=== PATIENT | female | born 2000 | race Caucasian/White ===

== ENCOUNTER 2020-12-27 09:23 | Emergency (ER) | payer BC, OTHER ==
--- OUTSIDE RECORDS SUMMARY | 2020-12-27 09:25 | XMS REPORT | Continuity of Care Document ---
:2000 Author Organization [facility] t Address [address] [place] [address] Care Team Providers Name Role Phone Unavailable Unavailable Unavailable Problems This patient has no known problems. Allergies, Adverse Reactions, Alerts This patient has no known allergies or adverse reactions. Medications Ordered Filled Start Stop Current Ordering Indication Dosage Frequency Signature Comments Components Source Medication Medication Date Date Medication? Clinician (SIG) Name Name Sprintec 28 Sprintec 28 Yes Na Huizar [address] [facility] Xanax Xanax Yes Na Huizar [address] [facility] Quetiapine Quetiapine Yes Na Huizar [address] [facility] Propranolol Propranolol Yes Na Huizar [address] [facility] HCl HCl [facility] Mononessa Mononessa Yes Na Huizar TAKE [address] [facility] Procedures This patient has no known procedures. Encounters Start End Encounter Admission Attending Care Care Encounter Source Date/Time Date/Time Type Type Clinicians Facility Department ID 2020-11-03 2020-11-03 Outpatient [facility] [id number] [facility] 2020-11-03 2020-11-03 [facility] [id number] [facility] 2020-11-02 2020-11-02 [facility] [id number] [facility] 2020-10-12 2020-10-12 [facility] [id number] [facility] 2019-11-07 2019-11-07 [facility] [id number] [facility] 05:57[facility]00 05:57:00 t Ernul Ernul [facility] 2019-10-27 2019-10-27 [facility] [id number] [facility] 15:00:00 15:00:00 t Ernul [facility] [place] [facility] 2019-10-17 2019-10-17 [facility] [id number] [facility] 13:50:00 13:50:00 t Ernul [facility] [place] [facility] 2019-01-20 2019-01-20 [facility] [id number] [facility] 10:00:00 10:00:00 t Ernul [facility] [place] [facility] 2018-12-20 2018-12-20 [facility] [id number] [facility] 08:00:00 08:00:00 t Ernul [facility] [place] [facility] 2018-10-09 2018-10-09 [facility] [id number] [facility] 15:15:00 15:15:[address] Ernul [facility] [facility] [address] [facility] 2018-03-27 2018-03-27 [facility] [id number] [facility] 11:00:00 11:00:00 t Ernul [facility] [place] [facility] 2018-01-16 2018-01-16 [facility] [id number] [facility] 10:45:00 10:45:00 t Ernul [facility] [place] [facility] Results This patient has no known results.
--- NOTE | 2020-12-27 11:04 | RAD REPORT ---
EXAM DESCRIPTION: CT - Stone Protocol - 12/27/2020 10:48 am CLINICAL HISTORY: FLANK PAIN COMPARISON: Stone Protocol dated 11/21/2017 TECHNIQUE: Axial 5 mm thick images were obtained without oral or IV contrast. The [id number] span s the entirety of the system including uppermost abdomen and lung bases. All CT scans are performed using dose optimization technique as appropriate and may include automated exposure control or mA/KV adjustment according to patient size. FINDINGS: Moderate hydronephrosis of the right-sided collecting system is present secondary to a 7 x 3 mm distal right ureteral stone. The obstructing calculus is approximately 2 cm from the right UVJ. No other obstructing or nonobstructing calculus of either kidney. No left-sided hydronephrosis. No s uspicious renal masses. Isodense masses and pyelonephritis are not excluded on a stone protocol CT sc an. No significant adrenal finding. Urinary bladder is fully contracted. No bladder calculi seen. A f ew phleboliths are seen along the pelvic floor. Uterus and ovaries show no suspicious findings. Imaged portions of the liver, spleen and pancreas show no suspicious findings on non-contrast imaging . The liver does show fatty infiltration pattern. No gallbladder or biliary tree abnormality identifi ed. No suspicious bowel findings. No hernia, mass or bulky lymphadenopathy noted. No free air, free fluid or inflammatory stranding. No significant bony abnormality. IMPRESSION: Moderate right-sided hydronephrosis secondary to a 7 x 3 mm distal right ureteral stone approximately 2 cm from the UVJ. Isodense masses and pyelonephritis are not excluded on stone protocol technique.
[2020-12-27 11:31] LABS: Urine Bacteria <20 /HPF (<20); Urine Mucus LIGHT /HPF (NONE SEEN); Urine RBC 20-50 /HPF (NONE SEEN)
[2020-12-27 11:51] LABS: Absolute Lymphocytes (CBC) 1.9 K/uL (0.7-4.9); Basophils % 0.7 % (0-1.3); Hematocrit 41.3 % (36.0-45.0); Lymphocytes % 11.8 % (15.3-44.8); MPV 8.7 fL (7.6-11.3); RBC Red Blood Cell Count 4.83 M/uL (3.86-4.86)
[2020-12-27] MEDS ORDERED: ONDANSETRON 4 MG/2 ML VIAL ONE ×2 (11:55→13:16)
[2020-12-27] MEDS ORDERED: NA CHLORIDE 0.9% 1,000 ML ONE (11:55)
[2020-12-27] MEDS ORDERED: TAMSULOSIN 0.4 MG SR CAP ONE (11:55)
[2020-12-27] MEDS ORDERED: MORPHINE 4 MG/ML SYR ONE (11:55)
[2020-12-27 11:56] LABS: Potassium 4.1 mmol/L (3.5-5.1)
[2020-12-27 11:57] LABS: Albumin 4.1 g/dL (3.4-5.0); Bilirubin Direct 0.1 mg/dL (0-0.2); Bilirubin Total 0.4 mg/dL (0.2-1.0); Protein, Total 8.2 g/dL (6.4-8.2)
--- NOTE | 2020-12-27 12:14 | EDPHYS ---
Physician Documentation [facility] Name: Dustin Edwards Age: 20 yrs Sex: Female : 2000 Arrival Date: 12/27/2020 Time: 09:26 Bed 20 Private MD: ED Physician Natalia Duran HPI: 12/27 11:38 This 20 yrs old Female presents to ER via Ambulatory with complaints of ma2 Possible Kidney Stone. 11:38 The patient complains of pain in the right mid back. Onset: The symptoms/episode ma2 began/occurred gradually, 1 day(s) ago. Associated signs and symptoms: Pertinent negatives: dysuria, urinary frequency, headache, hematuria, nausea. Severity of pain: At its worst the pain was moderate in the emergency department the pain has resolved. The patient has experienced a previous episode. 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 - Social history:: Smoking status: Reported history of juuling and/or vaping. Patient/guardian denies using alcohol, street drugs, The patient lives with family. - Family history:: not pertinent. ROS: 11:38 Constitutional: Negative for fever, chills, and weight loss. ma2 11:38 All other systems are negative. Exam: 11:38 Constitutional: This is a well developed, well nourished patient who is awake, alert, ma2 and in no acute distress. Chest/axilla: Normal chest wall appearance and motion. Nontender with no deformity. No lesions are appreciated. Cardiovascular: Regular rate and rhythm with a normal S1 and S2. No gallops, murmurs, or rubs. Normal PMI, no JVD. No pulse deficits. Respiratory: Lungs have equal breath sounds bilaterally, clear to auscultation and percussion. No rales, rhonchi or wheezes noted. No increased work of breathing, no retractions or nasal flaring. Abdomen/GI: Soft, non-tender, with normal bowel sounds. No distension or tympany. No guarding or rebound. No evidence of tenderness throughout. Skin: Warm, dry with normal turgor. Normal color with no rashes, no lesions, and no evidence of cellulitis. MS/ Extremity: Pulses equal, no cyanosis. Neurovascular intact. Full, normal range of motion. Neuro: Awake and alert, GCS 15, oriented to person, place, time, and situation. Cranial nerves II-XII grossly intact. Motor strength 5/5 in all extremities. Sensory grossly intact. Cerebellar exam normal. Normal gait. Vital Signs: 10:06 BP 151 / 86; Pulse 87; Resp 16; Temp 98.4; Pulse Ox 100% on R/A; Weight 142.88 kg; iw Height 5 ft. 4 in. (162.56 cm); Pain 9/10; 12:00 BP 147 / 75; Pulse 79; Resp 17; Pulse Ox 99% ; bp 14:00 BP 127 / 72; Pulse 75; Resp 17; Pulse Ox 100% ; bp 10:06 Body Mass Index 54.07 (142.88 kg, 162.56 cm) MDM: 11:13 Patient medically screened. ma2 11:38 Differential diagnosis: nephrolithiasis, pyelonephritis, UTI, pancreatitis. ma2 12:12 Data reviewed: vital signs, nurses notes. Counseling: I had a detailed discussion with ma2 the patient and/or guardian regarding: the historical points, exam findings, and any diagnostic results supporting the discharge/admit diagnosis, the presence of at least one elevated blood pressure reading (>120/80) during this emergency department visit, the need for outpatient follow up. Response to treatment: the patient's symptoms have markedly improved after treatment. ED course: wbc is elevated likley d/t pain and stress, as no uti on ua, or ct , o other component to qualify for sirs, i explained need to f/uy with urology in 2 days and return to er precaution given. 12/27 10:32 Order name: Urine --Ancillary (enter results) iw 12/27 10:32 Order name: Urine Microscopic Only iw 12/27 10:33 Order name: Urine Microscopic Only; Complete Time: 12:12 EDMS 12/27 10:42 Order name: Urine Dipstick--Ancillary (enter results) bd 12/27 11:20 Order name: Basic Metabolic Panel; Complete Time: 12:12 nm2 12/27 11:20 Order name: CBC with Diff; Complete Time: 12:12 nm2 12/27 10:33 Order name: CT Stone Protocol; Complete Time: 11:19 iw 12/27 11:20 Order name: Hepatic Function; Complete Time: 12:12 nm2 12/27 11:20 Order name: Lipase; Complete Time: 12:12 nm2 12/27 11:33 Order name: Urine Culture [facility] 12/27 11:20 Order name: IV Saline Lock; Complete Time: 12:01 nm2 12/27 11:20 Order name: Labs collected and sent; Complete Time: 12:44 ma2 Administered Medications: 11:45 Drug: NS 0.9% 1000 ml Route: IV; Rate: 1 bolus; Site: right antecubital; bp 11:45 Drug: Zofran (Ondansetron) 4 mg Route: IVP; Site: right antecubital; bp 12:44 Follow up: Response: No adverse reaction bp 11:45 Drug: Flomax 0.4 mg Route: PO; bp 12:44 Follow up: Response: No adverse reaction bp 11:45 Drug: morphine 4 mg Route: IVP; Site: right antecubital; bp 12:44 Follow up: Response: Pain is decreased bp 13:00 Drug: Dilaudid (HYDROmorphone) 1 mg Route: IVP; Site: right antecubital; bp 13:00 Drug: Zofran (Ondansetron) 4 mg Route: IVP; Site: right antecubital; bp Disposition: 12/27/20 12:14 Discharged to Home. Impression: Calculus of urinary tract in diseases classified elsewhere - right ureter. - Condition is Stable. - Discharge Instructions: Kidney Stones. - Prescriptions for Flomax 0.4 mg Oral Capsule, Sust. Release 24 hr - take 1 capsule by ORAL route once daily 1/2 hour following the same meal each day; 30 capsule. Diclofenac Sodium 75 mg Oral Tablet Sustained Release - take 1 tablet by ORAL route 2 times per day; 30 tablet. Zofran 4 mg Oral Tablet - take 1 tablet by ORAL route every 12 hours As needed; 20 tablet. - Medication Reconciliation Form, Thank You Letter, Antibiotic Education, Prescription Opioid Use form. - Follow up: Dejon Farooq; When: Tomorrow; Reason: If symptoms return, Continuance of care. Signatures: Dispatcher [employer] Raquel Talley RN RN Cristhian Magdaleno RN RN bp Alzahri, Mohammad, MD MD ma2 Corrections: (The following items were deleted from the chart) 14:11 12:14 12/27/2020 12:14 Discharged to Home. Impression: Calculus of urinary tract in bp diseases classified elsewhere - right ureter. Condition is Stable. Prescriptions for Flomax 0.4 mg Oral Capsule, Sust. Release 24 hr - take 1 capsule by ORAL route once daily 1/2 hour following the same meal each day; 30 capsule, Diclofenac Sodium 75 mg Oral Tablet Sustained Release - take 1 tablet by ORAL route 2 times per day; 30 tablet, Zofran 4 mg Oral Tablet - take 1 tablet by ORAL route every 12 hours As needed; 20 tablet. and Forms are Medication Reconciliation Form, Thank You Letter, Antibiotic Education, Prescription Opioid Use. Follow up: Dejon Farooq; When: Tomorrow; Reason: If symptoms return, Continuance of care. ma2
--- NOTE | 2020-12-27 12:14 | ER ---
Nurse's Notes [facility] Name: Dustin Edwards Age: 20 yrs Sex: Female : 2000 Arrival Date: 12/27/2020 Time: 09:26 Bed 20 Private MD: Diagnosis: Calculus of urinary tract in diseases classified elsewhere-right ureter Presentation: 12/27 10:04 Chief complaint: Parent and/or Guardian states: pain in right low back radiating to abd iw , feels like a kidney stone, started at 2 am, +nausea. Coronavirus screen: At this time, the client does not indicate any symptoms associated with coronavirus-19. Ebola Screen: Patient negative for fever greater than or equal to 101.5 degrees Fahrenheit, and additional compatible Ebola Virus Disease symptoms Patient denies exposure to infectious person. Patient denies travel to an Ebola-affected area in the 21 days before illness onset. No symptoms or risks identified at this time. Initial Sepsis Screen: Does the patient meet any 2 criteria? No. Patient's initial sepsis screen is negative. Does the patient have a suspected source of infection? No. Patient's initial sepsis screen is negative. Risk Assessment: Do you want to hurt yourself or someone else? Patient reports no desire to harm self or others. Onset of symptoms was December 27, 2020. 10:04 Method Of Arrival: Ambulatory iw 10:04 Acuity: BRANDI 3 iw Triage Assessment: 10:10 General: Appears distressed, uncomfortable, obese, Behavior is cooperative, appropriate bp for age, anxious. Pain: Complains of pain in right mid back. EENT: No deficits noted. Neuro: No deficits noted. Cardiovascular: No deficits noted. Respiratory: No deficits noted. GI: Reports Pain is 5 out of 10 on a pain scale. : No signs and/or symptoms were reported regarding the genitourinary system. Derm: No deficits noted. Musculoskeletal: No deficits noted. 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 - Social history:: Smoking status: Reported history of juuling and/or vaping. Patient/guardian denies using alcohol, street drugs, The patient lives with family. - Family history:: not pertinent. Screenin:00 Abuse screen: Denies threats or abuse. Denies injuries from another. Nutritional bp screening: No deficits noted. Tuberculosis screening: No symptoms or risk factors identified. Fall Risk None identified. Assessment: 10:15 General: SEE TRIAGE NOTE. bp 12:00 Reassessment: No changes from previously documented assessment. Patient and/or family bp updated on plan of care and expected duration. Pain level reassessed. Patient is alert, oriented x 3, equal unlabored respirations, skin warm/dry/pink. IVF INFUSING. 14:00 Reassessment: PT D/C HOME AMBULATORY WITH FAMILY, DX WITH RENAL CALCULUS. bp Vital Signs: 10:06 BP 151 / 86; Pulse 87; Resp 16; Temp 98.4; Pulse Ox 100% on R/A; Weight 142.88 kg; iw Height 5 ft. 4 in. (162.56 cm); Pain 9/10; 12:00 BP 147 / 75; Pulse 79; Resp 17; Pulse Ox 99% ; bp 14:00 BP 127 / 72; Pulse 75; Resp 17; Pulse Ox 100% ; bp 10:06 Body Mass Index 54.07 (142.88 kg, 162.56 cm) iw ED Course: 09:26 Patient arrived in ED. as 10:05 Triage completed. iw 10:06 Arm band placed on. iw 10:48 CT Stone Protocol In Process Unspecified. EDMS 11:13 Natalia Duran MD is Attending Physician. ma2 11:13 Cristhian Magdaleno, KYRIE is Primary Nurse. bp 11:23 Urine Microscopic Only Sent. iw 11:45 Inserted saline lock: 20 gauge in right antecubital area, using aseptic technique. bp Blood collected. 12:00 Patient has correct armband on for positive identification. Bed in low position. Call bp light in reach. Side rails up X2. 12:13 Dejon Farooq MD is Referral Physician. ma2 Administered Medications: 11:45 Drug: NS 0.9% 1000 ml Route: IV; Rate: 1 bolus; Site: right antecubital; bp 11:45 Drug: Zofran (Ondansetron) 4 mg Route: IVP; Site: right antecubital; bp 12:44 Follow up: Response: No adverse reaction bp 11:45 Drug: Flomax 0.4 mg Route: PO; bp 12:44 Follow up: Response: No adverse reaction bp 11:45 Drug: morphine 4 mg Route: IVP; Site: right antecubital; bp 12:44 Follow up: Response: Pain is decreased bp 13:00 Drug: Dilaudid (HYDROmorphone) 1 mg Route: IVP; Site: right antecubital; bp 13:00 Drug: Zofran (Ondansetron) 4 mg Route: IVP; Site: right antecubital; bp Outcome: 12:14 Discharge ordered by MD. walters 14:11 Patient left the ED. bp Signatures: Dispatcher [employer] Maya Norris Irene, RN RN iw Cristhian Magdaleno RN RN bp Natalia Duran MD MD ma2 Corrections: (The following items were deleted from the chart) 14:10 14:05 General: SEE TRIAGE NOTE. bp bp
[2020-12-27] MEDS ORDERED: HYDROMORPHONE HCL 1 MG/ML INJ ONE (13:16)
[2020-12-27 14:42] VITALS: TEMP 98.4
[2020-12-27 14:45] VITALS: BP 127/72; O2SAT 100
[2020-12-27 15:55] LABS: Urine Blood 1+ (Negative); Urine Glucose NEGATIVE (Negative); Urine Protein NEGATIVE (NEG); Urine Specific Gravity 1.025 (1.005-1.030)
[2020-12-27 15:56] LABS: Urine Specific Gravity/Preg 1.025 (1.005-1.030)
== END 2020-12-27 14:11 | disposition home or self-care (01) ==
LOC: ER 09:23
DX: N20.1 Calculus of ureter (principal); F20.9 Schizophrenia, unspecified
CPT/HCPCS: 87088; 85025; 87086; 80048; 36415; 81025; 80076; 83690; 76377; 74176; J1170; J7030; J2405 ×2; 81003; 81015; 96374; 96375; 99284

== ENCOUNTER 2024-05-12 14:00 | Emergency (ER) | payer BC, OTHER ==
--- OUTSIDE RECORDS SUMMARY | 2024-05-12 14:03 | XMS REPORT | Continuity of Care Document ---
Author Name Unknown Address [address] [facility] [place] [address] [facility] Address [address] [facility] [address] [place] [address] Care Team Providers Care Crnp Name Role Phone Beatrice Huizar Attending Clinician Unavailable Payers Payer Name Policy Type Policy Number Effective Date Expirati on Date Source Claudia [facility] 6 [id number] Commo n [facility] [id number] 2019 00:00:00 [facility] [id number] 2019 00:00:00 [facility] Problems Condition Name Condition Details Condition Category Status Onset Date Resolution Date Last Treatment Date Treating Clinician Comments Source [id number] Allergic rhinitis due to animal hair and dander Problem [facility] [id number] Gastroesop hageal reflux disease, unspecifie d whether esophagiti s present Problem [facility] [id number] Current smoker Problem [facility] Child health medical examinatio n Encntr for routine child health exam w/o abnormal findings Problem [facility] Morbid obesity Morbid obesity with BMI of 40.0-44.9, adult Problem [facility] [id number] Menorrhalg ia Problem [facility] [id number] Other specified bacterial agents as the cause of diseases classified elsewhere Problem [facility] Bipolar disorder Bipolar disorder Problem [facility] Schizophre mohamud Schizophre mohamud Problem [facility] [id number] Metrorrhag ia Problem [facility] Mixed anxiety and depressive disorder Depression with anxiety Problem [facility] [id number] Acute sinusitis, unspecifie d Problem [facility] Essential hypertensi on Essential hypertensi on Problem [facility] Vitamin D deficiency Vitamin D deficiency Problem [facility] [id number] Acute tonsilliti s due to other specified organisms Problem [facility] Social History Social Habit Start Date Stop Date Quantity Comments Source History of Tobacco Use Current Smoker [facility] Sex Assigned At [facility] Smoking Status Start Date Stop Date Source Current Smoker 2022-09-27 00:00:00 [facility] Never Smoker [facility] Medications Ordered Medication Name Filled Medication Name Start Date Stop Date Current Medication? Ordering Clinician Indication Dosage Frequency Signature (SIG) Comments Components Source Xanax 0.5 MG Xanax 0.5 MG 2021-10 00:00: 00 No 1{table t} Xanax 0.5 MG Xanax 0.5 MG Xanax 0.5 MG 2021-06-12 00:00: 00 No 1{table t} Xanax 0.5 MG Xanax 0.5 MG Xanax 0.5 MG 2021-0 06-12 00:00: 00 No 1{table t} Xanax 0.5 MG Flonase 50 MCG/ACT Flonase 50 MCG/ACT 2021-0 03-22 00:00: 00 No 2{spray _in_eac h_nostr il} QD Flonase 50 MCG/ACT Xanax 0.5 MG Xanax 0.5 MG 2021-03-22 00:00: 00 No 1{table t} Xanax 0.5 MG Cetirizine HCl 10 MG Cetirizine HCl 10 MG 2021-0 03-22 00:00: 00 No 1{table t} Cetirizine HCl 10 MG Cetirizine HCl 10 MG Cetirizine HCl 10 MG 2021-0 6- 00:00: 00 No 1{table t} Cetirizine HCl 10 MG Cetirizine HCl 10 MG Cetirizine HCl 10 MG 2021-0 6- 00:00: 00 No 1{table t} Cetirizine HCl 10 MG Flonase 50 MCG/ACT Flonase 50 MCG/ACT 2-0 6- 00:00: 00 No 2{spray _in_eac h_nostr il} QD Flonase 50 MCG/ACT Cetirizine HCl 10 MG Cetirizine HCl 10 MG 2021-0 - 00:00: 00 No 1{table t} Cetirizine HCl 10 MG Flonase 50 MCG/ACT Flonase 50 MCG/ACT 2-0 6- 00:00: 00 No 2{spray _in_eac h_nostr il} QD Flonase 50 MCG/ACT Xanax 0.5 MG Xanax 0.5 MG 2021-0 4-06 00:00: 00 No 1{table t} Xanax 0.5 MG Xanax 0.5 MG Xanax 0.5 MG 2021-0 1-04 00:00: 00 No 1{table t} Xanax 0.5 MG Lo Loestrin Fe 1 MG-10 MCG / 10 MCG Lo Loestrin Fe 1 MG-10 MCG / 10 MCG 2020-1 0-04 00:00: 00 No 1{table t} QD Lo Loestrin Fe 1 MG-10 MCG / 10 MCG Famotidine 20 MG Famotidine 20 MG 2020-0 2-03 00:00: 00 No 1{table t} BID Famotidine 20 MG Sprintec 28 Sprintec 28 Yes Na Huizar 1 tablet [facility] Xanax Xanax Yes Na Huizar 1 tablet C [facility] Quetiapine Fumarate Quetiapine Fumarate Yes Na Huizar 1 tablet [facility] Propranolol HCl Propranolol HCl Yes Na Huizar 1 tablet [facility] Mononessa Mononessa Yes Na Huizar TAKE 1 TABLET BY MOUTH EVERY DAY [facility] Propranolol HCl 40 MG Propranolol HCl 40 MG No 1{table t} BID Propranolo l HCl 40 MG Lo Loestrin Fe 1 MG-10 MCG / 10 MCG Lo Loestrin Fe 1 MG-10 MCG / 10 MCG No Lo Loestrin Fe 1 MG-10 MCG / 10 MCG Lo Loestrin Fe 1 MG-10 MCG / 10 MCG Lo Loestrin Fe 1 MG-10 MCG / 10 MCG No Lo Loestrin Fe 1 MG-10 MCG / 10 MCG Nicotine 21 MG/24HR Nicotine 21 MG/24HR No 1{patch _to_ski n} QD Nicotine 21 MG/24HR Lo Loestrin Fe 1 MG-10 MCG / 10 MCG Lo Loestrin Fe 1 MG-10 MCG / 10 MCG No Lo Loestrin Fe 1 MG-10 MCG / 10 MCG QUEtiapine Fumarate 300 MG QUEtiapine Fumarate 300 MG No 1{table t} QUEtiapine Fumarate 300 MG Sprintec 28 35-0.25 MCG-MG Sprintec 28 35-0.25 MCG-MG No 1{table t} QD Sprintec 28 35-0.25 MCG-MG Xanax 0.5 MG Xanax 0.5 MG No 1{table t} Xanax 0.5 MG Propranolol HCl 40 MG Propranolol HCl 40 MG No 1{table t} BID Propranolo l HCl 40 MG Vital Signs Vital Name Observation Time Observation Value Comments S chad height 2022-09-04 17:00:00 64 [in_i] Commo n [facility] weight 2022-09-04 17:00:00 270 [lb_av] Comm on [facility] bmi 2022-09-04 17:00:00 46.34 kg/m2 Comm on [facility] height 2022-06-12 08:40:00 64 [in_i] Commo n [facility] weight 2022-06-12 08:40:00 269.8 [lb_av] Co mmon [facility] temperature 2022-06-12 08:40:00 98.1 [degF] Com mon [facility] bmi 2022-06-12 08:40:00 46.31 kg/m2 Comm on [facility] oximetry 2022-06-12 08:40:00 98 % Commo n [facility] respiratory rate 2022-06-12 08:40:00 16 /min [facility] blood pressure systolic 2022-06-12 08:40:00 122 mm[Hg] Common [facility] blood pressure diastolic 2022-06-12 08:40:00 68 mm[Hg] [facility] height 2022-03-22 09:40:00 64 [in_i] Commo n [facility] weight 2022-03-22 09:40:00 282 [lb_av] Comm on [facility] temperature 2022-03-22 09:40:00 98.3 [degF] Com [facility] bmi 2022-03-22 09:40:00 48.4 kg/m2 Commo n [facility] oximetry 2022-03-22 09:40:00 97 % Commo n [facility] blood pressure systolic 2022-03-22 09:40:00 130 mm[Hg] [facility] blood pressure diastolic 2022-03-22 09:40:00 82 mm[Hg] Common [facility] height 2021-10-04 13:00:00 64.00 [in_i] Com [facility] weight 2021-10-04 13:00:00 282 [lb_av] Comm on [facility] temperature 2021-10-04 13:00:00 98.3 [degF] Com [facility] bmi 2021-10-04 13:00:00 48.4 kg/m2 Commo n [facility] oximetry 2021-10-04 13:00:00 97 % Commo n [facility] respiratory rate 2021-10-04 13:00:00 20 /min [facility] blood pressure systolic 2021-10-04 13:00:00 130 mm[Hg] [facility] blood pressure diastolic 2021-10-04 13:00:00 82 mm[Hg] [facility] height 2021-07-04 13:20:00 64.00 [in_i] Com [facility] weight 2021-07-04 13:20:00 286.4 [lb_av] Co mmon [facility] temperature 2021-07-04 13:20:00 97.3 [degF] Com [facility] bmi 2021-07-04 13:20:00 49.16 kg/m2 Comm on [facility] oximetry 2021-07-04 13:20:00 98 % Commo n [facility] respiratory rate 2021-07-04 13:20:00 16 /min [facility] blood pressure systolic 2021-07-04 13:20:00 122 mm[Hg] [facility] blood pressure diastolic 2021-07-04 13:20:00 78 mm[Hg] [facility] Encounters Start Date/Time End Date/Time Encounter Type Admission Type Attending [facility] Care Facility Care Department Encounter ID Source 2022-08-31 15:18:00 Outpatient Gaye Na STLMLC STLMLC [id number] [facility] 2022-08-30 10:59:00 Outpatient Gaye Na STLMLC STLMLC [id number] [facility] 2022-06-08 11:29:00 Outpatient Gaye, Na STLMLC STLMLC [id number] [facility] 2022-05-05 10:48:00 Outpatient Beatrice Huizar STLMLC STLMLC [id number] [facility] 2021-11-30 10:38:00 Outpatient Gaye Na STLMLC STLMLC [id number] [facility] 2021-11-16 17:20:00 Outpatient Beatrice Huizar STLMLC STLMLC [id number] [facility] 2021-11-09 09:30:01 Outpatient Beatrice Huizar STLMLC STLMLC [id number] [facility] 2021-11-02 14:13:00 Outpatient Beatrice Huizar STLMLC STLMLC [id number] [facility] 2021-10-26 14:30:42 Outpatient Beatrice Huizar STLMLC STLMLC [id number] [facility] 2021-10-26 13:56:00 Outpatient Beatrice Huizar STKRISSYLC STLMLC [id number] [facility] 2021-10-26 13:00:32 Outpatient Beatrice Huizar STKRISSYLC STLMLC [id number] [facility] 2021-10-26 12:20:05 Outpatient Beatrice Huizar STKRISSYLC STLMLC [id number] [facility] 2021-10-26 11:17:28 Outpatient Beatrice Huizar STLMLC STLMLC [id number] [facility] 2024-01-14 13:18:45 2024-01-14 13:18:45 Outpatient SFA SFA [id number] Jalen Osorio 2023-12-13 10:58:08 2023-12-13 10:58:08 Outpatient SFA SFA [id number] Jalen Josue Devon 2023-10-27 13:58:47 2023-10-27 13:58:47 Outpatient SFA SFA [id number] Jalen Josue Devon 2023-08-24 16:01:11 2023-08-24 16:01:11 Outpatient SFA SFA [id number] Jalen Josue Devon 2023-08-22 13:53:38 2023-08-22 13:53:38 Outpatient SFA SFA [id number] Jalen Josue Devon 2023-07-31 17:23:49 2023-07-31 17:23:49 Outpatient SFA SFA [id number] Jalen Osorio 2022-09-04 00:00:00 2022-09-04 00:00:00 OFFICE VISIT EST PT LEVEL 3 STLMLC STLMLC [id number] [facility] 2022-06-12 00:00:00 2022-06-12 00:00:00 OFFICE VISIT EST PT LEVEL 3 STLMLC STLMLC [id number] [facility] 2022-03-22 00:00:00 2022-03-22 00:00:00 OFFICE VISIT EST PT LEVEL 3 STLMLC STLMLC [id number] [facility] 2022-01-04 00:00:00 2022-01-04 00:00:00 OFFICE VISIT EST PT LEVEL 3 STLMLC STLMLC [id number] [facility] 2021-10-04 00:00:00 2021-10-04 00:00:00 OFFICE VISIT ESTAB PT LEVEL 4 STLMLC STLMLC [id number] [facility] 2021-07-13 00:00:00 2021-07-13 00:00:00 (TEL) STLMLC STLMLC [id number] [facility] 2021-07-04 00:00:00 2021-07-04 00:00:00 (ESTPT) Establishe d Patient STLMLC STLMLC [id number] [facility] 2020-12-27 00:00:00 2020-12-27 00:00:00 Outpatient STLMLC STLMLC [id number] [facility] 2020-11-03 00:00:00 2020-11-03 00:00:00 Outpatient STLMLC STLMLC [id number] [facility] 2020-11-03 00:00:00 2020-11-03 00:00:00 Outpatient STLMLC STLMLC [id number] [facility] 2020-11-02 00:00:00 2020-11-02 00:00:00 Outpatient STLMLC STLMLC [id number] [facility] 2020-10-12 00:00:00 2020-10-12 00:00:00 Outpatient STLMLC STLMLC [id number] [facility] 2019-11-07 05:57:00 2019-11-07 05:57:[address] [facility] [id number] [facility] 2019-10-27 15:00:00 2019-10-27 15:00:00 [facility] [id number] [facility] 2019-10-17 13:50:00 2019-10-17 13:50:00 [facility] [id number] [facility] 2019-01-20 10:00:00 2019-01-20 10:00:00 [facility] [id number] [facility] 2018-12-20 08:00:00 2018-12-20 08:00:00 [facility] [id number] [facility] 2018-10-09 15:15:00 2018-10-09 15:15:00 [facility] [id number] [facility] 2018-03-27 11:00:00 2018-03-27 11:00:00 [facility] [id number] [facility] 2018-01-16 10:45:00 2018-01-16 10:45:00 [facility] [id number] [facility] Results Test Description Test Time Test Comments Results Result Co mments Source TSH, THIRD [id number] 06:09:08* Test Item Value Reference Range Interpretation Comme nts TSH, THIRD GENERATION (test code = 2821) 2.200 UIU/ML 0.400-4.100 HEMOGLOBIN [id number] 02:55:57* Test Item Value Reference Range Interpretation Comme nts HEMOGLOBIN A1c (test code = 73593) 5.1 % 4.2-5.6 LIPID [id number] 02:42:48* Test Item Value Reference Range Interpretation Comme nts CHOLESTEROL (test code = 2210) 165 MG/DL <200 TRIGLYCERIDES (test code = 2232) 128 MG/DL <150 HDL CHOLESTEROL (test code = 2220) 46 MG/DL >39 CALC LDL CHOL (test code = 2236) 97 MG/DL <100 NOTE: CALCULATED LDL IS BASED ON STACEY-YEAGER METHOD WHICHINCLUDES ADJUSTABLE TRIGLYCERIDE:VLDL CHOLESTEROL RATIO.THIS FACTOR VARIES BY MEASURED TRIGLYCERIDE AND NON-HDLCHOLESTEROL CONCENTRATIONS WITH INCREASED CALCULATED LDL SEENIN HIGHER TRIGLYCERIDE OR LOWER NON-HDL SPECIMENS. FOR MOREINFORMATION, SEE CLIENT ANNOUNCEMENT AT [email or web address] [email or web address] RATIO LDL/HDL (test code = 2237) 2.11 RATIO <3.22 COMPREHENSIVE METABOLIC [id number] 02:42:48* Test Item Value Reference Range Interpretation Comme nts GLUCOSE (test code = 2216) 93 MG/DL 70-99 BUN (test code = 2207) 7 MG/DL 6-20 CREATININE (test code = 221) 0.81 MG/DL 0.60-1.30 eGFR (2020 CKD-EPI) (test code = 87101) 104 ML/MIN/1.73 >60 CALC BUN/CREAT (test code = 2235) 9 RATIO 6-28 SODIUM (test code = 223) 140 MEQ/L 133-146 POTASSIUM (test code = 2228) 4.1 MEQ/L 3.5-5.4 CHLORIDE (test code = 2215) 101 MEQ/L 95-107 CARBON DIOXIDE (test code = 2206) 27 MEQ/L 19-31 CALCIUM (test code = 2209) 10.2 MG/DL 8.5-10.5 PROTEIN, TOTAL (test code = 2228) 7.5 G/DL 6.1-8.3 ALBUMIN (test code = 2200) 5.0 G/DL 3.5-5.2 CALC GLOBULIN (test code = 2240) 2.5 G/DL 1.9-3.7 CALC A/G RATIO (test code = 223) 2.0 RATIO 1.0-2.6 BILIRUBIN, TOTAL (test code = 2207) 0.5 MG/DL See_Comment [Automated nc ssage] The system which generated this result transmitted reference range: <=1.2. The reference range was not used to interpret this result as normal/abnormal. ALKALINE PHOSPHATASE (test code = 2204) 73 U/L 40-115 AST (test code = 2218) 15 U/L 9-40 ALT (test code = 2219) 11 U/L 5-40 CBC W/AUTO DIFF WITH [id number] 02:29:33* Test Item Value Reference Range Interpretation Comme nts WBC (test code = 1001) 8.6 K/UL 3.5-11.0 RBC (test code = 1002) 4.79 M/UL 3.80-5.40 HEMOGLOBIN (test code = 1003) 14.7 G/DL 11.5-15.5 HEMATOCRIT (test code = 1004) 43.8 % 34.0-45.0 MCV (test code = 1005) 91.4 fL 80.0-99.0 MCH (test code = 1006) 30.7 PG 25.0-33.0 MCHC (test code = 1007) 33.6 G/DL 31.0-36.0 RDW (test code = 1038) 12.5 % 11.5-15.0 NEUTROPHILS (test code = 1008) 54.0 % LYMPHOCYTES (test code = 1010) 38.7 % MONOCYTES (test code = 1011) 5.8 % EOSINOPHILS (test code = 1012) 0.9 % BASOPHILS (test code = 1013) 0.5 % IMMATURE GRANULOCYTES (test code = 1036) 0.1 % NUCLEATED RBCS (test code = 1065) 0.0 /100 WBC'S See_Comment [Automated messa ge] The system which generated this result transmitted reference range: 0.0. The reference range was not used to interpret this result as normal/abnormal. PLATELET COUNT (test code = 1015) 410 K/UL 130-400 H ABSOLUTE NEUTROPHILS (test code = 1066) 4.65 K/UL 1.50-7.50 ABSOLUTE LYMPHOCYTES (test code = 1067) 3.34 K/UL 1.00-4.00 ABSOLUTE MONOCYTES (test code = 1068) 0.50 K/UL 0.20-1.00 ABSOLUTE EOSINOPHILS (test code = 1040) 0.08 K/UL 0.00-0.50 ABSOLUTE BASOPHILS (test code = 1069) 0.04 K/UL 0.00-0.20 ABS IMMATURE GRANULOCYTES (test code = 1020) 0.01 K/UL 0.00-0.10 ABS NUCLEATED RBCS (test code = 20072) 0.00 K/UL 0.00-0.11
[2024-05-12] MEDS ORDERED: LIDOCAINE VISCOUS 2% 10ML ORAL SOLN ONE (14:36)
[2024-05-12] MEDS ORDERED: MAGNES/ALUMIN/SIMET 30ML UCUP ONE (14:36)
[2024-05-12] MEDS ORDERED: FAMOTIDINE 20 MG/2 ML VIAL IV ONE (14:36)
[2024-05-12 15:07] LABS: Absolute Basophils 0.1 K/uL (0-0.5); Absolute Eosinophils 0.1 K/uL (0-0.5); Absolute Lymphocytes (CBC) 1.7 K/uL (0.7-4.9); Absolute Monocytes 0.5 K/uL (0.1-1.3); Basophils % 0.5 % (0-1.3); Eosinophils % 0.7 % (0-4.4); Hematocrit 44.1 % (36.0-45.0); Hemoglobin 14.7 g/dL (12.0-15.0); Lymphocytes % 13.9 % (15.3-44.8); MCH 29.7 pg (27.0-35.0); MCHC 33.3 g/dL (32.0-36.0); MCV 89.1 fL (80-100); MPV 9.2 fL (7.6-11.3); Neutrophils % 80.9 % (41.7-73.7); Platelets 323 thou/uL (152-406); RBC Red Blood Cell Count 4.95 M/uL (3.86-4.86); Red Cell Distribution Width 13.7 % (12.1-15.2)
[2024-05-12 15:09] LABS: Specific Gravity 1.015 (1.005-1.030)
[2024-05-12 15:10] LABS: Specific Gravity 1.015 (1.005-1.030); Sqamous Epithelial <5 /HPF (None Seen); Urine Bacteria None Seen /HPF (<20); Urine Bilirubin NEGATIVE (Negative); Urine Blood Negative (Negative); Urine Clarity Clear (Clear); Urine Color Light-Yellow (Yellow); Urine Culture Reflex Order NOT NEEDED; Urine Glucose NEGATIVE (Negative); Urine Ketones NEGATIVE (Negative); Urine Microscopic Reflex YN ORDER UMIC; Urine Mucus Slight /HPF (None Seen); Urine Nitrite NEGATIVE (Negative); Urine Protein NEGATIVE (Negative); Urine RBC <5 /HPF (None Seen); Urine Urobilinogen Normal (Normal); Urine WBC <5 /HPF (<5); Urine pH 6.5 (5.0-7.0)
[2024-05-12 15:22] LABS: Albumin 4.1 g/dL (3.4-5.0); Albumin/Globulin Ratio 1.2 (1.1-1.8); Anion Gap 9.7 mEq/L (5.0-15.0); Bilirubin Total 0.4 mg/dL (0.2-1.0); Globulin 3.3 g/dL (2.3-3.5); Potassium 3.7 mEq/L (3.5-5.1); Protein, Total 7.4 g/dL (6.4-8.2)
--- NOTE | 2024-05-12 15:50 | RAD REPORT ---
EXAM DESCRIPTION: CT - Abdomen Pelvis W Contrast - 05/12/2024 3:34 pm CLINICAL HISTORY: Abdominal pain COMPARISON: 2020 TECHNIQUE: Computed axial tomography of the abdomen pelvis was obtained. 100 cc [id number] was admin istered intravenously. Oral contrast was not requested which limits evaluation of bowel and appendix All CT scans are performed using dose optimization technique as appropriate and may include automated exposure control or mA/KV adjustment according to patient size. FINDINGS: Multiple gallstones. Gallbladder wall does not appear thickened. The liver, spleen, pancreas, adrenal and kidneys appear unremarkable. There is no evidence of diverticulitis. Normal appendix. No adnexal mass Tiny umbilical hernia IMPRESSION: Cholelithiasis without evidence of cholecystitis
--- NOTE | 2024-05-12 15:50 | RAD REPORT ---
EXAM DESCRIPTION: US - Abdomen Exam Limited - 05/12/2024 3:19 pm CLINICAL HISTORY: Abdominal pain. COMPARISON: None. FINDINGS: Multiple gallstones. Gallbladder wall is not thickened The biliary tree is normal caliber. IMPRESSION: Cholelithiasis without evidence of cholecystitis
--- NOTE | 2024-05-12 16:05 | EDPHYS ---
Physician Documentation [facility] Name: Dustin Edwards Age: 24 yrs Sex: Female : 2000 Arrival Date: 05/12/2024 Time: 14:00 Bed 14 Private MD: ED Physician Romario Garvey HPI: 05/12 14:29 This 24 yrs old Female presents to ER via Ambulatory with complaints of Abdominal Pain. rn 14:29 The patient presents with abdominal pain in the epigastric area. Onset: The rn symptoms/episode began/occurred this morning. The symptoms radiate to chest. Associated signs and symptoms: Pertinent positives: nausea, Pertinent negatives: blood in stools, fever, shortness of breath, vomiting blood. The symptoms are described as achy, burning. Modifying factors: The symptoms are alleviated by nothing, the symptoms are aggravated by food. Severity of pain: At its worst the pain was moderate in the emergency department the pain has improved. The patient has experienced similar episodes in the past. Patient reports epigastric abdominal pain that began 2 days ago, got better, worse this morning, worse with food. Has had acid problems in the past and diagnosed with ulcer in the past and this feels similar. Denies any blood in stool or hematemesis. Radiates into chest.. Historical: - Allergies: 14:12 No Known Allergies; aa5 - PMHx: 14:12 Anxiety; Bipolar disorder; Depression; Schizophrenia; Hypertensive disorder; aa5 - Immunization history:: Adult Immunizations unknown. - Infectious Disease History:: Denies. - Social history:: Smoking status: Patient reports the use of cigarette tobacco products. - Family history:: not pertinent. - Hospitalizations: : No recent hospitalization is reported. ROS: 14:29 Constitutional: Negative for fever, chills, and weight loss, Cardiovascular: Negative rn for palpitations, and edema, Respiratory: Negative for shortness of breath, cough, wheezing, and pleuritic chest pain, Abdomen/GI: Positive for upper abdominal pain with nausea MS/Extremity: Negative for injury and deformity, Neuro: Negative for headache, weakness, numbness, tingling, and seizure, Exam: 15:00 Constitutional: This is a well developed, well nourished patient who is awake, alert, rn and in no acute distress. Cardiovascular: Tachycardic, regular. No pulse deficits. Respiratory: No increased work of breathing, no retractions or nasal flaring. Abdomen/GI: soft, + epigastric tenderness, neg boyer MS/ Extremity: Pulses equal, no cyanosis. Neuro: Awake and alert, GCS 15 Vital Signs: 14:11 BP 170 / 103; Pulse 115; Resp 20 S; Temp 97.6(TE); Pulse Ox 97% on R/A; aa5 15:30 BP 135 / 68; Pulse 83; Resp 16; Pulse Ox 98% on R/A; db 16:00 BP 120 / 85; Pulse 83; Resp 16; Pulse Ox 98% on R/A; db MDM: 14:08 Patient medically screened. rn 16:03 Differential diagnosis: cholecystitis, Cholelithiasis, gastritis, gastroesophageal rn reflux disease, non-specific abd pain, pancreatitis, Peptic Ulcer Disease, Perf. Duodenal Ulcer, Perf. Gastric Ulcer. Data reviewed: vital signs, nurses notes, lab test result(s), radiologic studies, CT scan, ultrasound, and as a result, I will discharge patient. Counseling: I had a detailed discussion with the patient and/or guardian regarding the historical points, exam findings, and any diagnostic results supporting the discharge/admit diagnosis, lab results, radiology results, the need for outpatient follow up, to return to the emergency department if symptoms worsen or persist or if there are any questions or concerns that arise at home. Response to treatment: the patient's symptoms have markedly improved after treatment, and as a result, I will discharge patient. Special discussion: Based on the patient's Hx, exam, and Dx evaluation, there is no indication for emergent surgery or inpatient Tx. It is understood by the patient/guardian that if the Sx's persist or worsen they need to return immediately for re-evaluation. I discussed with the patient/guardian in detail that at this point there is no indication for admission to the hospital. It is understood, however, that if the symptoms persist or worsen the patient needs to return immediately for re-evaluation. Based on the history and exam findings, there is no indication for further emergent testing or inpatient evaluation. I discussed with the patient/guardian the need to see the manager configuration for further evaluation of the symptoms. I discussed with the patient/guardian the need to see the general surgeon for further evaluation of the symptoms. ED course: Patient improved, workup reveals cholelithiasis without cholecystitis. Pain improved with antacid medication only. No indication for emergent admission at this time or emergent surgery. Will discharge with return precautions, GI follow-up, general surgery follow-up.. 05/12 14:26 Order name: CBC with Diff; Complete Time: 15:26 rn 05/12 14:26 Order name: CMP; Complete Time: 15:26 rn 05/12 14:26 Order name: Lipase; Complete Time: 15: rn 05/12 14:26 Order name: Test, Urine; Complete Time: 15: rn 05/12 14:26 Order name: Urinalysis w/ reflexes; Complete Time: 15:26 rn 05/12 14:26 Order name: CT Abd/Pelvis - IV Contrast Only; Complete Time: 15:52 rn 05/12 14:26 Order name: US Abdomen Limited; Complete Time: 15:52 rn 05/12 14:26 Order name: IV Saline Lock; Complete Time: 15:12 rn 05/12 14:26 Order name: Labs collected and sent; Complete Time: 15:12 rn Administered Medications: 14:45 Drug: Famotidine IVP 20 mg IVP once; dilute with 10 mL 0.9% NaCl; give over 2 minutes db Route: IVP; Site: right antecubital; 16:34 Follow up: Response: No adverse reaction db 14:45 Drug: GI Cocktail without - (Maalox PO 30 ml, Lidocaine Mucous Membrane 2 % 15 db ml) PO once Route: PO; 16:34 Follow up: Response: No adverse reaction db Disposition Summary: 05/12/24 16:04 Discharge Ordered Notes: Location: Home rn Problem: new rn Symptoms: have improved rn Condition: Stable rn Diagnosis - Other cholelithiasis without obstruction rn Followup: rn - With: Quincy Neves MD - When: As needed - Reason: Recheck today's complaints, Re-evaluation by your physician Discharge Instructions: - Discharge Summary Sheet rn - Cholelithiasis rn Forms: - Medication Reconciliation Form rn - Antibiotic international sales manager - Prescription Opioid Use rn - Patient Portal Instructions rn - Leadership Thank You Letter rn Prescriptions: - ondansetron 4 mg Oral Tablet,disintegrating - take 1 tablet ORAL route every 8 hours As needed; 15 tablet; Refills: 0, rn Product Selection Permitted - Protonix 40 mg Oral Tablet - take 1 tablet ORAL route once daily; 30 tablet; Refills: 0, Product Selection rn Permitted - Tramadol 50 mg Oral tablet - take 1 tablet ORAL route every 8 hours as needed; 15 tablet; Refills: 0, rn Product Selection Permitted Signatures: Dispatcher [employer] Romario Padron MD MD rn Calderon, Audri, RN RN aa5 Nevin Ramires RN RN db
--- NOTE | 2024-05-12 16:05 | ER ---
Nurse's Notes [facility] Name: Dustin Edwards Age: 24 yrs Sex: Female : 2000 Arrival Date: 05/12/2024 Time: 14:00 Bed 14 Private MD: Diagnosis: Other cholelithiasis without obstruction Presentation: 05/12 14:11 Chief complaint: Patient states: epigastric pain radiating up to chest that began 2-3 aa5 days ago. Pt states "I think it's an ulcer". Coronavirus screen: At this time, the client does not indicate any symptoms associated with coronavirus-19. Ebola Screen: No symptoms or risks identified at this time. Initial Sepsis Screen: Does the patient meet any 2 criteria? HR > 90 bpm. Does the patient have a suspected source of infection? No. Patient's initial sepsis screen is negative. Risk Assessment: Do you want to hurt yourself or someone else? Patient reports no desire to harm self or others. 14:11 Acuity: BRANDI 3 aa5 14:11 Method Of Arrival: Ambulatory aa5 14:11 Onset of symptoms was May 2024. aa5 Historical: - Allergies: 14:12 No Known Allergies; aa5 - PMHx: 14:12 Anxiety; Bipolar disorder; Depression; Schizophrenia; Hypertensive disorder; aa5 - Immunization history:: Adult Immunizations unknown. - Infectious Disease History:: Denies. - Social history:: Smoking status: Patient reports the use of cigarette tobacco products. - Family history:: not pertinent. - Hospitalizations: : No recent hospitalization is reported. Screenin:31 [facility] ED Fall Risk Assessment (Adult) History of falling in the last 3 months, db including since admission No falls in past 3 months (0 pts) Confusion or Disorientation No (0 pts) Intoxicated or Sedated No (0 pts) Impaired Gait No (0 pts) Mobility Assist Device Used No (0 pt) Altered Elimination No (0 pt) Score/Fall Risk Level 0 - 2 = Low Risk Oriented to surroundings, Maintained a safe environment. Abuse screen: Denies threats or abuse. Denies injuries from another. Nutritional screening: No deficits noted. Tuberculosis screening: No symptoms or risk factors identified. Assessment: 15:30 Reassessment: Patient appears in no apparent distress at this time. Patient and/or db family updated on plan of care and expected duration. Pain level reassessed. Patient is alert, oriented x 3, equal unlabored respirations, skin warm/dry/pink. General: Appears in no apparent distress. comfortable, Behavior is calm, cooperative. Pain: Complains of pain in abdomen Pain does not radiate. Pain began gradually. Neuro: Level of Consciousness is awake, alert, obeys commands, Oriented to person, place, time, situation. Cardiovascular: No deficits noted. Vital Signs: 14:11 BP 170 / 103; Pulse 115; Resp 20 S; Temp 97.6(TE); Pulse Ox 97% on R/A; aa5 15:30 BP 135 / 68; Pulse 83; Resp 16; Pulse Ox 98% on R/A; db 16:00 BP 120 / 85; Pulse 83; Resp 16; Pulse Ox 98% on R/A; db ED Course: 14:04 Patient arrived in ED. mg5 14:08 Romario Garvey MD is Attending Physician. rn 14:11 Arm band placed on. aa5 14:12 Triage completed. aa5 14:31 Nevin Ramires, KYRIE is Primary Nurse. db 15:12 Patient taken to ultrasound. db 15:21 US Abdomen Limited In Process Unspecified. EDMS 15:36 CT Abd/Pelvis - IV Contrast Only In Process Unspecified. EDMS 16:04 Quincy Neves MD is Referral Physician. rn 16:31 Patient has correct armband on for positive identification. Bed in low position. Call db light in reach. Side rails up X 1. Provided Education on: DISCHARGE AND FOLLOWUP. Pulse ox on. NIBP on. Pillow given. 16:31 No provider procedures requiring assistance completed. IV discontinued, intact, db bleeding controlled, No redness/swelling at site. Patient maintains SpO2 saturation greater than 95% on room air. Administered Medications: 14:45 Drug: Famotidine IVP 20 mg IVP once; dilute with 10 mL 0.9% NaCl; give over 2 minutes db Route: IVP; Site: right antecubital; 16:34 Follow up: Response: No adverse reaction db 14:45 Drug: GI Cocktail without - (Maalox PO 30 ml, Lidocaine Mucous Membrane 2 % 15 db ml) PO once Route: PO; 16:34 Follow up: Response: No adverse reaction db Medication: 16:31 VIS not applicable for this client. db Outcome: 16:04 Discharge ordered by . rn 16:31 Discharged to home ambulatory, with family, db 16:31 Condition: stable 16:31 Discharge instructions given to patient, Instructed on discharge instructions, follow up and referral plans. Prescriptions given X 3, 16:34 Patient left the ED. db Signatures: Dispatcher [employer] EDRomario Armstrong MD MD rn Calderon, Audri, RN RN aa5 Nevin Ramires RN RN db Radha Millan mg5
[2024-05-12 16:39] VITALS: TEMP 97.6
[2024-05-12 16:40] VITALS: O2SAT 98
[2024-05-12 16:41] VITALS: BP 120/85
== END 2024-05-12 16:34 | disposition home or self-care (01) ==
LOC: ER 14:00
DX: K80.80 Other cholelithiasis without obstruction (principal)
CPT/HCPCS: 85025; 81001; 36415; 81025; 83690; 80053; 74177; 76705; 96374; 99285; Q9967

== ENCOUNTER 2024-06-03 01:28 | Emergency (ER) | payer OTHER ==
--- OUTSIDE RECORDS SUMMARY | 2024-06-03 01:30 | XMS REPORT | Continuity of Care Document ---
Author Name Unknown Address [address] [facility] [address] [place] [address] [facility] thconnect Address [address] [facility] 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 Role Phone Beatrice Huizar Attending Clinician Unavailable Payers Payer Name Policy Type Policy Number Effective Date Expirati on Date Source Claudia [facility] 6 [id number] Commo n [facility] [id number] 2019 00:00:00 [facility] [id number] 2019 00:00:00 [facility] Problems Condition Name Condition Details Condition Category Status Onset Date Resolution Date Last Treatment Date Treating Clinician Comments Source [id number] Allergic rhinitis due to animal hair and dander Problem [facility] [id number] Gastroesop hageal reflux disease, unspecifie d whether esophagiti s present Problem [facility] [id number] Current smoker Problem [facility] Child health medical examinatio n Encntr for routine child health exam w/o abnormal findings Problem [facility] Morbid obesity Morbid obesity with BMI of 40.0-44.9, adult Problem [facility] [id number] Menorrhalg ia Problem [facility] [id number] Other specified bacterial agents as the cause of diseases classified elsewhere Problem [facility] Bipolar disorder Bipolar disorder Problem [facility] Schizophre mohamud Schizophre mohamud Problem [facility] [id number] Metrorrhag ia Problem [facility] Mixed anxiety and depressive disorder Depression with anxiety Problem [facility] [id number] Acute sinusitis, unspecifie d Problem [facility] Essential hypertensi on Essential hypertensi on Problem [facility] Vitamin D deficiency Vitamin D deficiency Problem [facility] [id number] Acute tonsilliti s due to other specified organisms Problem [facility] Social History Social Habit Start Date Stop Date Quantity Comments Source History of Tobacco Use Current Smoker [facility] Sex Assigned At [facility] Smoking Status Start Date Stop Date Source Current Smoker 2022-09-27 00:00:00 [facility] Never Smoker [facility] Medications Ordered Medication Name Filled Medication Name Start Date Stop Date Current Medication? Ordering Clinician Indication Dosage Frequency Signature (SIG) Comments Components Source Xanax 0.5 MG Xanax 0.5 MG 2021-10 2 00:00: 00 No 1{table t} Xanax 0.5 MG Xanax 0.5 MG Xanax 0.5 MG 06-12 00:00: 00 No 1{table t} Xanax 0.5 MG Xanax 0.5 MG Xanax 0.5 MG 06-12 00:00: 00 No 1{table t} Xanax 0.5 MG Flonase 50 MCG/ACT Flonase 50 MCG/ACT 2021-0 03-22 00:00: 00 No 2{spray _in_eac h_nostr il} QD Flonase 50 MCG/ACT Xanax 0.5 MG Xanax 0.5 MG 03-22 00:00: 00 No 1{table t} Xanax 0.5 MG Cetirizine HCl 10 MG Cetirizine HCl 10 MG 2021-03-22 00:00: 00 No 1{table t} Cetirizine HCl 10 MG Cetirizine HCl 10 MG Cetirizine HCl 10 MG 2021-0 6- 00:00: 00 No 1{table t} Cetirizine HCl 10 MG Cetirizine HCl 10 MG Cetirizine HCl 10 MG 2021-0 6-22 00:00: 00 No 1{table t} Cetirizine HCl 10 MG Flonase 50 MCG/ACT Flonase 50 MCG/ACT 2021-0 6- 00:00: 00 No 2{spray _in_eac h_nostr il} QD Flonase 50 MCG/ACT Cetirizine HCl 10 MG Cetirizine HCl 10 MG 2021-0 6- 00:00: 00 No 1{table t} Cetirizine HCl 10 MG Flonase 50 MCG/ACT Flonase 50 MCG/ACT 2021-0 6 00:00: 00 No 2{spray _in_eac h_nostr il} QD Flonase 50 MCG/ACT Xanax 0.5 MG Xanax 0.5 MG 2021-0 4-06 00:00: 00 No 1{table t} Xanax 0.5 MG Xanax 0.5 MG Xanax 0.5 MG 2-0 1-04 00:00: 00 No 1{table t} Xanax [...] Sprintec 28 Yes Na Huizar 1 tablet [facility] Xanax Xanax Yes Na Huizar 1 tablet C [facility] Quetiapine Fumarate Quetiapine Fumarate Yes Na Huizar 1 tablet [facility] Propranolol HCl Propranolol HCl Yes Na Huizar 1 tablet [facility] Mononessa Mononessa Yes Na Huizar TAKE 1 TABLET BY MOUTH EVERY DAY [facility] Propranolol HCl 40 MG Propranolol HCl [...] height 2022-09-04 17:00:00 64 [in_i] Commo n [facility] weight 2022-09-04 17:00:00 270 [lb_av] Comm on [facility] bmi 2022-09-04 17:00:00 46.34 kg/m2 Comm on [facility] height 2022-06-12 08:40:00 64 [in_i] Commo n [facility] weight 2022-06-12 08:40:00 269.8 [lb_av] Co mmon [facility] temperature 2022-06-12 08:40:00 98.1 [degF] Com mon [facility] bmi 2022-06-12 08:40:00 46.31 kg/m2 Comm on [facility] oximetry 2022-06-12 08:40:00 98 % Commo n [facility] respiratory rate 2022-06-12 08:40:00 16 /min Common [facility] blood pressure systolic 2022-06-12 08:40:00 122 mm[Hg] Common [facility] blood pressure diastolic 2022-06-12 08:40:00 68 mm[Hg] [facility] height 2022-03-22 09:40:00 64 [in_i] Commo n [facility] weight 2022-03-22 09:40:00 282 [lb_av] Comm on [facility] temperature 2022-03-22 09:40:00 98.3 [degF] Com [facility] bmi 2022-03-22 09:40:00 48.4 kg/m2 Commo n [facility] oximetry 2022-03-22 09:40:00 97 % Commo n [facility] blood pressure systolic 2022-03-22 09:40:00 130 mm[Hg] [facility] blood pressure diastolic 2022-03-22 09:40:00 82 mm[Hg] [facility] height 2021-10-04 13:00:00 64.00 [in_i] Com [facility] weight 2021-10-04 13:00:00 282 [lb_av] Comm on [facility] temperature 2021-10-04 13:00:00 98.3 [degF] Com [facility] bmi 2021-10-04 13:00:00 48.4 kg/m2 Commo n [facility] oximetry 2021-10-04 13:00:00 97 % Commo n [facility] respiratory rate 2021-10-04 13:00:00 20 /min [facility] blood pressure systolic 2021-10-04 13:00:00 130 mm[Hg] [facility] blood pressure diastolic 2021-10-04 13:00:00 82 mm[Hg] [facility] height 2021-07-04 13:20:00 64.00 [in_i] Com [facility] weight 2021-07-04 13:20:00 286.4 [lb_av] Co mmon [facility] temperature 2021-07-04 13:20:00 97.3 [degF] Com mon [facility] bmi 2021-07-04 13:20:00 49.16 kg/m2 Comm on [facility] oximetry 2021-07-04 13:20:00 98 % Commo n [facility] respiratory rate 2021-07-04 13:20:00 16 /min [facility] blood pressure systolic 2021-07-04 13:20:00 122 mm[Hg] [facility] blood pressure diastolic 2021-07-04 13:20:00 78 mm[Hg] [facility] Encounters Start Date/Time End Date/Time Encounter Type Admission Type Attending [facility] Care Facility Care Department Encounter ID Source 2022-08-31 15:18:00 Outpatient Huizar, Na STLMLC STLMLC [id number] [facility] 2022-08-30 10:59:00 Outpatient Huizar, Na STLMLC STLMLC [id number] [facility] 2022-06-08 11:29:00 Outpatient Huizar, Na STLMLC STLMLC [id number] [facility] 2022-05-05 10:48:00 Outpatient Huizar, Na STLMLC STLMLC [id number] [facility] 2021-11-30 10:38:00 Outpatient Huizar, Na STLMLC STLMLC [id number] [facility] 2021-11-16 17:20:00 Outpatient Huizar, Na STLMLC STLMLC [id number] [facility] 2021-11-09 09:30:01 Outpatient Beatrice Huizar STLMLC STLMLC [id number] [facility] 2021-11-02 14:13:00 Outpatient Beatrice Huizar STLMLC STLMLC [id number] [facility] 2021-10-26 14:30:42 Outpatient Beatrice Huizar STLMLC STLMLC [id number] [facility] 2021-10-26 13:56:00 Outpatient Beatrice Huizar STLMLC STLMLC [id number] [facility] 2021-10-26 13:00:32 Outpatient Beatrice Huizar STLMLC STLMLC [id number] [facility] 2021-10-26 12:20:05 Outpatient Beatrice Huizar STLMLC STLMLC [id number] [facility] 2021-10-26 11:17:28 Outpatient Beatrice Huizar STLMLC STLMLC [id number] [facility] 2024-01-14 13:18:45 2024-01-14 13:18:45 Outpatient SFA SFA [id number] Jalen Osorio 2023-12-13 10:58:08 2023-12-13 10:58:08 Outpatient SFA SFA [id number] Jalen Josue Devon 2023-10-27 13:58:47 2023-10-27 13:58:47 Outpatient SFA SFA [id number] Jalen Josue Devon 2023-08-24 16:01:11 2023-08-24 16:01:11 Outpatient SFA SFA [id number] Jalen Josue Devon 2023-08-22 13:53:38 2023-08-22 13:53:38 Outpatient SFA SFA [id number] Jalen Josue Devon 2023-07-31 17:23:49 2023-07-31 17:23:49 Outpatient SFA SFA [id number] Jalen Osorio 2022-09-04 00:00:00 2022-09-04 00:00:00 OFFICE VISIT EST PT LEVEL 3 STLMLC STLMLC [id number] [facility] 2022-06-12 00:00:00 2022-06-12 00:00:00 OFFICE VISIT EST PT LEVEL 3 STLMLC STLMLC [id number] [facility] 2022-03-22 00:00:00 2022-03-22 00:00:00 OFFICE VISIT EST PT LEVEL 3 STLMLC STLMLC [id number] [facility] 2022-01-04 00:00:00 2022-01-04 00:00:00 OFFICE VISIT EST PT LEVEL 3 STLMLC STLMLC [id number] [facility] 2021-10-04 00:00:00 2021-10-04 00:00:00 OFFICE VISIT ESTAB PT LEVEL 4 STLMLC STLMLC [id number] [facility] 2021-07-13 00:00:00 2021-07-13 00:00:00 (TEL) STLMLC STLMLC [id number] [facility] 2021-07-04 00:00:00 2021-07-04 00:00:00 (ESTPT) Establishe d Patient STLMLC STLMLC [id number] [facility] 2020-12-27 00:00:00 2020-12-27 00:00:00 Outpatient STLMLC STLMLC [id number] [facility] 2020-11-03 00:00:00 2020-11-03 00:00:00 Outpatient STLMLC STLMLC [id number] [facility] 2020-11-03 00:00:00 2020-11-03 00:00:00 Outpatient STLMLC STLMLC [id number] [facility] 2020-11-02 00:00:00 2020-11-02 00:00:00 Outpatient STLMLC STLMLC [id number] [facility] 2020-10-12 00:00:00 2020-10-12 00:00:00 Outpatient STLMLC STLMLC [id number] [facility] 2019-11-07 05:57:00 2019-11-07 05:57:[address] [facility] [id number] [facility] 2019-10-27 15:00:00 2019-10-27 15:00:00 [facility] [id number] [facility] 2019-10-17 13:50:00 2019-10-17 13:50:00 [facility] [id number] [facility] 2019-01-20 10:00:00 2019-01-20 10:00:[address] [facility] [id number] [facility] 2018-12-20 08:00:00 2018-12-20 08:00:00 [facility] [id number] [facility] 2018-10-09 15:15:00 2018-10-09 15:15:[address] [facility] [id number] [facility] 2018-03-27 11:00:00 2018-03-27 11:00:[address] [facility] [id number] [facility] 2018-01-16 10:45:00 2018-01-16 10:45:[address] [facility] [id number] [facility] Results Test Description Test Time Test Comments Results Result Co mments Source TSH, THIRD [id number] 06:09:08* Test Item Value Reference Range Interpretation Comme nts TSH, THIRD GENERATION (test code = 2821) 2.200 UIU/ML 0.400-4.100 HEMOGLOBIN [id number] 02:55:57* Test Item Value Reference Range Interpretation Comme nts HEMOGLOBIN A1c (test code = 54554) 5.1 % 4.2-5.6 LIPID [id number] 02:42:48* Test Item Value Reference Range Interpretation [...] SPECIMENS. FOR MOREINFORMATION, SEE CLIENT ANNOUNCEMENT AT [email or web address] RATIO LDL/HDL (test code = 2237) 2.11 RATIO <3.22 COMPREHENSIVE METABOLIC [id number] 02:42:48* Test Item Value Reference Range Interpretation Comme nts GLUCOSE (test code = 2216) 93 MG/DL 70-99 BUN (test code = 2207) 7 MG/DL 6-20 CREATININE (test code = 2214) 0.81 MG/DL 0.60-1.30 eGFR (2020 CKD-EPI) (test code = 00635) 104 ML/MIN/1.73 >60 CALC BUN/CREAT (test code = 5) 9 RATIO 6-28 SODIUM (test code = [...] code = 2207) 0.5 MG/DL See_Comment [Automated ct ssage] The system which generated this result transmitted reference range: <=1.2. The reference range was not used to interpret this result as normal/abnormal. ALKALINE PHOSPHATASE (test code = 4) 73 U/L 40-115 AST (test code = 2218) 15 U/L 9-40 ALT (test code = 2219) 11 U/L 5-40 CBC W/AUTO DIFF WITH [id number] 02:29:33* Test Item Value Reference Range Interpretation [...] 0.00-0.10 ABS NUCLEATED RBCS (test code = 72626) 0.00 K/UL 0.00-0.11
[2024-06-03] MEDS ORDERED: ONDANSETRON 4 MG/2 ML VIAL ONE (02:11)
[2024-06-03] MEDS ORDERED: NA CHLORIDE 0.9% 1,000 ML ONE ×2 (02:12→04:34)
[2024-06-03] MEDS ORDERED: MORPHINE 4 MG/ML SYR ONE (02:12)
[2024-06-03] MEDS ORDERED: KETOROLAC 30 MG/ML INJ ONE (02:12)
[2024-06-03 02:28] LABS: Absolute Eosinophils 0.1 K/uL (0-0.5); Absolute Lymphocytes (CBC) 1.8 K/uL (0.7-4.9); Absolute Neutrophil 11.9 K/uL (1.8-8.0); Basophils % 0.2 % (0-1.3); Eosinophils % 0.3 % (0-4.4); Hematocrit 43.9 % (36.0-45.0); Hemoglobin 14.4 g/dL (12.0-15.0); Lymphocytes % 12.2 % (15.3-44.8); MCH 29.6 pg (27.0-35.0); MCHC 32.8 g/dL (32.0-36.0); MCV 90.4 fL (80-100); MPV 9.4 fL (7.6-11.3); Monocytes % 6.5 % (3.3-12.3); Neutrophils % 80.8 % (41.7-73.7); Platelets 351 thou/uL (152-406); RBC Red Blood Cell Count 4.86 M/uL (3.86-4.86); Red Cell Distribution Width 13.5 % (12.1-15.2)
[2024-06-03 02:33] LABS: Specific Gravity < 1.005 (1.005-1.030)
[2024-06-03 02:38] LABS: Specific Gravity < 1.005 (1.005-1.030); Sqamous Epithelial <5 /HPF (None Seen); Urine Bacteria <20 /HPF (<20); Urine Bilirubin NEGATIVE (Negative); Urine Blood Negative (Negative); Urine Clarity Turbid (Clear); Urine Color Light-Yellow (Yellow); Urine Culture Reflex Order NOT NEEDED; Urine Glucose NEGATIVE (Negative); Urine Ketones 1+ (Negative); Urine Microscopic Reflex YN ORDER UMIC; Urine Nitrite NEGATIVE (Negative); Urine Protein NEGATIVE (Negative); Urine RBC <5 /HPF (None Seen); Urine Urobilinogen Normal (Normal); Urine WBC <5 /HPF (<5); Urine pH 7.5 (5.0-7.0)
[2024-06-03 02:52] LABS: Albumin 3.9 g/dL (3.4-5.0); Albumin/Globulin Ratio 1.1 (1.1-1.8); Anion Gap 9.5 mEq/L (5.0-15.0); Bilirubin Total 2.3 mg/dL (0.2-1.0); Globulin 3.5 g/dL (2.3-3.5); Potassium 3.5 mEq/L (3.5-5.1); Protein, Total 7.4 g/dL (6.4-8.2)
--- NOTE | 2024-06-03 04:10 | EDPHYS ---
Physician Documentation [facility] Name: Dustin Edwards Age: 24 yrs Sex: Female : 2000 Arrival Date: 06/03/2024 Time: 01:28 Bed 17 Private MD: ED Physician Markus Calhoun HPI: 06/03 01:46 This 24 yrs old Female presents to ER via Unassigned with complaints of ec2 Abdominal Pain. 01:46 Patient arrives today for evaluation of upper abdominal pain. Reports that she has been ec2 experiencing upper abdominal pain for the past several hours. Patient reports pain is in the epigastrium. History of cholelithiasis, states this feels similar. Some nausea, no vomiting, no bowel issues, no urinary complaints. No previous abdominal surgeries.. 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 - Infectious Disease History:: Denies. - Social history:: Smoking status: Patient reports the use of cigarette tobacco products, smokes one pack cigarettes per day. ROS: 01:47 Constitutional: as per hpi ec2 Exam: 01:47 Constitutional: GEN: NAD Head: atraumatic Eyes: EOMI Ears: External ears are ec2 normal. CV: regular rate LUNGS: no respiratory distress ABD: non-distended, soft, tender in the epigastrium SKIN: no evidence of rashes MSK: no evidence of trauma 05:09 ECG was reviewed by the Attending Physician. ec2 Vital Signs: 01:50 BP 140 / 120; Pulse 95; Resp 18; Temp 97.9; Pulse Ox 96% ; Weight 122.47 kg; Height 5 al5 ft. 5 in. ; Pain 8/10; 02:04 BP 128 / 75; Pulse 91; Resp 18; Pulse Ox 99% on R/A; pc2 03:30 BP 117 / 81; Pulse 68; Resp 18; Pulse Ox 96% on R/A; pc2 05:45 BP 106 / 61; Pulse 70; Resp 18; Temp 97.8; Pulse Ox 100% on R/A; pc2 01:50 Body Mass Index 44.93 (122.47 kg, 165.1 cm) al5 01:50 Pain Scale: Adult al5 MDM: 01:33 Patient medically screened. ec2 01:47 Data reviewed: vital signs. ED course: Patient arrives today for evaluation of upper ec2 abdominal pain. Examination remarkable for abdominal findings as above. Will obtain lab work, urine studies, ultrasonography. . 02:41 ED course: CBC shows slight leukocytosis. Urine negative. Noninfectious ec2 urine. . 02:41 ED course: Ultrasound shows cholelithiasis. . ec2 03:47 ED course: CT imaging shows concern for pancreatitis, cholelithiasis with ec2 pericholecystic fluid noted, patient does have LFT abnormalities as well as slight total bili elevation. Ultimately cannot exclude gallstone pancreatitis, I will transfer to GI capable facility, patient will require further imaging such as MRCP and possible ERCP as well. . 03:54 ED course: I updated the patient regarding the plan of care and patient and family are ec2 agreeable. Will obtain lactate, blood cultures, subsequently initiate transfer after lactate results. 05:09 ED course: EKG independently reviewed and interpreted by me, shows normal sinus rhythm, ec2 rate of 61, no acute ST segment elevations, intervals are nonconcerning. . 05:30 ED course: I discussed the case with transfer physician who agrees accept the patient ec2 for transfer.. 05:30 ED course: Differential diagnosis included processes such as cholecystitis, ec2 pancreatitis, gallstone pancreatitis, cholangitis, choledocholithiasis . 06/03 01:46 Order name: CBC with Diff; Complete Time: 02:41 ec2 06/03 01:46 Order name: CMP; Complete Time: 02:53 ec2 06/03 01:46 Order name: Lipase; Complete Time: 02:53 ec2 06/03 01:46 Order name: Test, Urine; Complete Time: 02:41 ec2 06/03 01:46 Order name: Urinalysis w/ reflexes; Complete Time: 02:41 ec2 06/03 03:46 Order name: Blood Culture Adult (2) ec2 06/03 03:46 Order name: Lactate w/ 2H reflex if indic.; Complete Time: 05:03 ec2 06/03 03:46 Order name: Protime (+inr); Complete Time: 05:03 ec2 06/03 03:46 Order name: Ptt, Activated; Complete Time: 05:03 ec2 06/03 01:46 Order name: US Abdomen Limited ec2 06/03 02:53 Order name: CT Abd/Pelvis - IV Contrast Only ec2 06/03 03:46 Order name: EKG; Complete Time: 03:47 ec2 06/03 01:46 Order name: IV Saline Lock; Complete Time: 02:01 ec2 06/03 01:46 Order name: Labs collected and sent; Complete Time: 02:01 ec2 06/03 03:46 Order name: Cardiac monitoring; Complete Time: 05:09 ec2 06/03 03:46 Order name: EKG - Nurse/Tech; Complete Time: 05:09 ec2 06/03 03:46 Order name: IV Saline Lock - Large Bore; Complete Time: 04:35 ec2 06/03 03:46 Order name: O2 Per Protocol; Complete Time: 04:23 ec2 06/03 03:46 Order name: O2 Sat Monitoring; Complete Time: 04:23 ec2 06/03 03:46 Order name: Vital Signs; Complete Time: 04:23 ec2 Administered Medications: 02:15 Drug: NS 0.9% IV 1000 ml IV at 1 bolus Per protocol; 1000 mL bolus Route: IV; Rate: 1 pc2 bolus; Site: right antecubital; 02:45 Follow up: Response: No adverse reaction; IV Status: Completed infusion; IV Intake: pc2 1000ml 02:15 Drug: TORadol - Ketorolac IVP 15 mg IVP once Route: IVP; Site: right antecubital; pc2 02:45 Follow up: Response: No adverse reaction pc2 02:15 Drug: Ondansetron IVP 4 mg IVP once; over 2 minutes Route: IVP; Site: right antecubital;pc2 02:45 Follow up: Response: No adverse reaction; Nausea is decreased pc2 02:15 Drug: morphine IVP or IV 4 mg IVP once over 4 mins Route: IVP; Infused Over: 4 mins; pc2 Site: right antecubital; 02:45 Follow up: Response: No adverse reaction; Marked relief of symptoms; Pain is decreased; pc2 RASS: Alert and Calm (0) 04:40 Drug: Piperacillin-Tazobactam IVPB 3.375 grams IVPB once over 60 mins; (mix in NS 100 pc2 mL) Route: IVPB; Infused Over: 60 mins; Site: right antecubital; 05:30 Follow up: Response: No adverse reaction; IV Status: Completed infusion; IV Intake: pc2 100ml 04:40 Drug: NS 0.9% IV 1000 ml IV at 1 bolus Per protocol; 1000 mL bolus Route: IV; Rate: 1 pc2 bolus; Site: right antecubital; 05:20 Follow up: Response: No adverse reaction; IV Status: Completed infusion; IV Intake: pc2 1000ml Disposition Summary: 06/03/24 04:09 Transfer Ordered Notes: Transfer Location: [facility] ec2 Reason: Higher level of care ec2 Condition: Stable ec2 Problem: new ec2 Symptoms: have improved ec2 Accepting Physician: transferring doc(06/03/24 06:27) pc2 Diagnosis - Acute pancreatitis without necrosis or infection, unspecified ec2 - Other cholelithiasis without obstruction ec2 - Possible Gallstone Pancreatitis ec2 Discharge Instructions: - Discharge Summary Sheet ec2 - Cholelithiasis ec2 Forms: - Medication Reconciliation Form ec2 - SBAR form ec2 Prescriptions: - acetaminophen-codeine 300-30 mg Oral tablet - take 1 tablet ORAL route every 6 hours; 15 tablet; Refills: 0, Product ec2 Selection Permitted Signatures: Dispatcher [employer] Markus Tony MD MD ec2 Milka Ortiz RN RN al5 Maria Teresa Harp, RN RN pc2 Corrections: (The following items were deleted from the chart) 04:38 03:46 Accucheck ordered. ec2 pc2 06:27 04:09 transferring doc ec2 pc2
--- NOTE | 2024-06-03 04:10 | ER ---
Nurse's Notes [facility] Name: Dustin Edwards Age: 24 yrs Sex: Female : 2000 Arrival Date: 06/03/2024 Time: 01:28 Bed 17 Private MD: Diagnosis: Acute pancreatitis without necrosis or infection, unspecified;Other cholelithiasis without obstruction;Possible Gallstone Pancreatitis Presentation: 06/03 01:50 Chief complaint: Patient states: c/o upper abdominal pain starting 4 hours ago. has al5 been having intermittent episodes of the pain x3 weeks. was seen at the hospital for it and was told she had gall stones. Coronavirus screen: At this time, the client does not indicate any symptoms associated with coronavirus-19. Ebola Screen: No symptoms or risks identified at this time. Initial Sepsis Screen: Does the patient meet any 2 criteria? No. Patient's initial sepsis screen is negative. Does the patient have a suspected source of infection? No. Patient's initial sepsis screen is negative. Risk Assessment: Do you want to hurt yourself or someone else? Patient reports no desire to harm self or others. Onset of symptoms was June 03, 2024. 01:50 Method Of Arrival: Ambulatory al5 01:50 Acuity: BRANDI 3 al5 Triage Assessment: 01:52 General: Appears in no apparent distress. uncomfortable, Behavior is calm, cooperative. al5 Pain: Complains of pain in right upper quadrant and left upper quadrant Pain currently is 8 out of 10 on a pain scale. EENT: No signs and/or symptoms were reported regarding the EENT system. Neuro: Level of Consciousness is awake, alert, obeys commands, Oriented to person, place, time, situation. Cardiovascular: Capillary refill < 3 seconds Patient's skin is warm and dry. Respiratory: Airway is patent Respiratory effort is even, unlabored, Respiratory pattern is regular, symmetrical. GI: Abdomen is non-distended, obese, Reports upper abdominal pain. : No signs and/or symptoms were reported regarding the genitourinary system. Derm: Skin is intact, Skin is pink, warm \T\ dry. normal. Musculoskeletal: No signs and/or symptoms reported regarding the musculoskeletal system. 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 - Infectious Disease History:: Denies. - Social history:: Smoking status: Patient reports the use of cigarette tobacco products, smokes one pack cigarettes per day. Screenin:01 [facility] ED Fall Risk Assessment (Adult) History of falling in the last 3 months, pc2 including since admission No falls in past 3 months (0 pts) Confusion or Disorientation No (0 pts) Intoxicated or Sedated No (0 pts) Impaired Gait No (0 pts) Mobility Assist Device Used No (0 pt) Altered Elimination No (0 pt) Score/Fall Risk Level 0 - 2 = Low Risk Oriented to surroundings, Maintained a safe environment, Hourly rounding (assess needs \T\ fall precautionary measures) done. Abuse screen: Denies threats or abuse. Denies injuries from another. Nutritional screening: No deficits noted. Tuberculosis screening: No symptoms or risk factors identified. Assessment: 02:02 General: Appears in no apparent distress. comfortable, Behavior is calm, cooperative. pc2 Pain: Complains of pain in abdomen and left upper quadrant and right upper quadrant Pain currently is 9 out of 10 on a pain scale. Neuro: Level of Consciousness is awake, alert, obeys commands, Oriented to person, place, time, situation. Cardiovascular: Patient's skin is warm and dry. Respiratory: Airway is patent Respiratory effort is even, unlabored, Respiratory pattern is regular, symmetrical. GI: Abdomen is round non-distended, obese, Bowel sounds present X 4 quads. Abd is soft and non tender Reports upper abdominal pain, nausea. : No signs and/or symptoms were reported regarding the genitourinary system. Urine is clear. EENT: No signs and/or symptoms were reported regarding the EENT system. Derm: No signs and/or symptoms reported regarding the dermatologic system. Musculoskeletal: No signs and/or symptoms reported regarding the musculoskeletal system. Vital Signs: 01:50 BP 140 / 120; Pulse 95; Resp 18; Temp 97.9; Pulse Ox 96% ; Weight 122.47 kg; Height 5 al5 ft. 5 in. ; Pain 8/10; 02:04 BP 128 / 75; Pulse 91; Resp 18; Pulse Ox 99% on R/A; pc2 03:30 BP 117 / 81; Pulse 68; Resp 18; Pulse Ox 96% on R/A; pc2 05:45 BP 106 / 61; Pulse 70; Resp 18; Temp 97.8; Pulse Ox 100% on R/A; pc2 01:50 Body Mass Index 44.93 (122.47 kg, 165.1 cm) al5 01:50 Pain Scale: Adult al5 ED Course: 01:31 Patient arrived in ED. [email or web address] 01:32 Markus Calhoun MD is Attending Physician. ec2 01:48 Maria Teresa Harp, RN is Primary Nurse. pc2 01:51 Triage completed. al5 01:53 Arm band placed on right wrist. Patient placed in the treatment room, on a stretcher. al5 01:53 Patient has correct armband on for positive identification. Bed in low position. Call al5 light in reach. Side rails up X 1. Provided Education on: processes and procedures. 01:55 Inserted saline lock: 20 gauge in right antecubital area, using aseptic technique. pc2 Blood collected. Flushed with 10 mL NS. 02:00 Initial lab(s) drawn, by me, sent to lab. pc2 02:00 Urine collected: clean catch specimen, clear. pc2 02:01 CBC with Diff Sent. pc2 02:01 CMP Sent. pc2 02:01 Lipase Sent. pc2 02:01 Test, Urine Sent. pc2 02:01 Urinalysis w/ reflexes Sent. pc2 02:01 No provider procedures requiring assistance completed. pc2 02:05 US at bedside. pc2 02:15 US Abdomen Limited In Process Unspecified. EDMS 03:[address] via stretcher. pc2 03:16 CT Abd/Pelvis - IV Contrast Only In Process Unspecified. EDMS 04:02 First set of blood cultures drawn by me. ty 04:20 Inserted saline lock: 20 gauge in left antecubital area, using aseptic technique. Blood ty collected. Flushed with 10 mL NS. 04:23 Initial lab(s) drawn, sent to lab. Second set of blood cultures drawn by me. ty 04:35 Blood Culture Adult (2) Sent. ty 04:35 Lactate w/ 2H reflex if indic. Sent. ty 04:35 Protime (+inr) Sent. ty 04:35 Ptt, Activated Sent. ty 05:08 EKG done, by ED staff, reviewed by Markus Calhoun MD. oe 05:45 Report given to KYRIE Vides receiving patient to [facility] room 942. pc2 06:17 Patient transferred, IV remains in place. pc2 Administered Medications: 02:15 Drug: NS 0.9% IV 1000 ml IV at 1 bolus Per protocol; 1000 mL bolus Route: IV; Rate: 1 pc2 bolus; Site: right antecubital; 02:45 Follow up: Response: No adverse reaction; IV Status: Completed infusion; IV Intake: pc2 1000ml 02:15 Drug: TORadol - Ketorolac IVP 15 mg IVP once Route: IVP; Site: right antecubital; pc2 02:45 Follow up: Response: No adverse reaction pc2 02:15 Drug: Ondansetron IVP 4 mg IVP once; over 2 minutes Route: IVP; Site: right antecubital;pc2 02:45 Follow up: Response: No adverse reaction; Nausea is decreased pc2 02:15 Drug: morphine IVP or IV 4 mg IVP once over 4 mins Route: IVP; Infused Over: 4 mins; pc2 Site: right antecubital; 02:45 Follow up: Response: No adverse reaction; Marked relief of symptoms; Pain is decreased; pc2 RASS: Alert and Calm (0) 04:40 Drug: Piperacillin-Tazobactam IVPB 3.375 grams IVPB once over 60 mins; (mix in NS 100 pc2 mL) Route: IVPB; Infused Over: 60 mins; Site: right antecubital; 05:30 Follow up: Response: No adverse reaction; IV Status: Completed infusion; IV Intake: pc2 100ml 04:40 Drug: NS 0.9% IV 1000 ml IV at 1 bolus Per protocol; 1000 mL bolus Route: IV; Rate: 1 pc2 bolus; Site: right antecubital; 05:20 Follow up: Response: No adverse reaction; IV Status: Completed infusion; IV Intake: pc2 1000ml Medication: 02:02 VIS not applicable for this client. pc2 Intake: 02:45 IV: 1000ml; Total: 1000ml. pc2 05:20 IV: 1000ml; Total: 2000ml. pc2 05:30 IV: 100ml; Total: 2100ml. pc2 Outcome: 04:09 ER care complete, transfer ordered by ec2 06:16 Condition: stable pc2 06:16 Transferred by ground EMS [place] Transfer form pc2 completed. 06:16 Instructed on the need for transfer, Demonstrated understanding of instructions, 06:27 Patient left the ED. pc2 Signatures: Dispatcher [employer] Landon Bar Jennifer [id number] Markus Calhoun MD MD ec2 Dc Peralta Amanda, RN RN al5 Maria Teresa Harp, RN RN pc2 Corrections: (The following items were deleted from the chart) 06:17 05:50 Condition: stable pc2 pc2
[2024-06-03] MEDS ORDERED: PIPERACIL/TAZO 3.375 GM VIAL IV ONE (04:34)
[2024-06-03] MEDS ORDERED: NA CHLORIDE 0.9% 100 ML ONE (04:34)
[2024-06-03 04:54] LABS: PT Prothrombin Time 12.3 SECONDS (9.4-12.5); PTT, Activated Partial Thromb 33.1 SECONDS (24.3-36.9); Protime INR 1.1
[2024-06-03 06:58] VITALS: BP 106/61; TEMP 97.8; O2SAT 100
--- NOTE | 2024-06-03 10:49 | RAD REPORT ---
EXAM DESCRIPTION: CT - Abdomen Pelvis W Contrast - 06/03/2024 7:[address] Abdomen and Pelvis With Intravenous Contrast CLINICAL HISTORY: Lipase elevation. TECHNIQUE: Axial computed tomography images of the abdomen and pelvis with intravenous contrast. S agittal and coronal reformatted images were created and reviewed. This CT exam was performed using one or more of the following dose reduction techniques: automated exposure control, adjustment of t he mA and/or kV according to patient size, and/or use of iterative reconstruction technique. COMPARISON: CT Abdomen pelvis with contrast 05/12/2024. FINDINGS: Lung bases: Unremarkable. No mass. No consolidation. ABDOMEN: Liver: Unremarkable. No mass. Gallbladder and bile ducts: Multiple gallstones within a minimally thickened gallbladder. Minimal i nfiltrative changes in the pericholecystic fat. Mild biliary dilatation. The common duct measures 8 mm in maximum diameter. Pancreas: The pancreas is enlarged and indistinct. Mild to moderate peripancreatic inflammation mos t pronounced proximally. Spleen: Unremarkable. No splenomegaly. Adrenals: Unremarkable. No mass. Kidneys and ureters: Unremarkable. Normal renal cortical enhancement. No calculi. No hydronephros is. Stomach and bowel: Moderate stool in the proximal to mid large bowel. No obstruction. No appreciabl e mucosal thickening. PELVIS: Appendix: Normal caliber appendix. No findings to suggest acute appendicitis. Bladder: Unremarkable. No mass. Reproductive: There is a 2 cm right ovarian corpus luteal cyst. The uterus and left ovary are unrem arkable as visualized. ABDOMEN and PELVIS: Intraperitoneal space: Trace free fluid in the cul-de-sac. No free air. Bones/joints: No acute fracture. No dislocation. Soft tissues: Unremarkable. Vasculature: Unremarkable. No abdominal aortic aneurysm. Lymph nodes: Unremarkable. No enlarged lymph nodes. IMPRESSION: 1. Findings suggestive of acute pancreatitis. Mild to moderate peripancreatic inflamma tion. No discrete drainable fluid collection or pseudocyst. 2. Cholelithiasis. Minimal gallbladder wall thickening and minimal infiltrative changes in the lorenzo cholecystic fat. Findings may be reactive and/or reflect gallstone pancreatitis. The possibility of e sean acute cholecystitis is not excluded. 3. Other findings as above. Electronically signed by: Surinder Garcia MD 06/03/2024 03:43 AM CDT Due to temporary technical issues with the PACS/Fluency reporting system, reports are being signed by the in house radiologists without review as a courtesy to insure prompt reporting. The interpreting radiologist is fully responsible for the content of the report.
--- NOTE | 2024-06-03 10:53 | RAD REPORT ---
EXAM DESCRIPTION: US - Abdomen Exam Limited - 06/03/2024 2:13 am CLINICAL HISTORY: GB eval COMPARISON: None. TECHNIQUE: Real-time sonographic images of the gallbladder were obtained using a curved multihertz t ransducer. FINDINGS: Liver: The visualized liver has normal contour and echogenicity. Gallbladder: Several echogenic structures in the gallbladder lumen. Gallbladder wall thickness of 0 .2 cm. Sonographic Hallman's sign is negative. Common bile duct measures 0.5 cm. IMPRESSION: Cholelithiasis without other sonographic evidence of acute cholecystitis. Electronically signed by: Arron Diaz DO 06/03/2024 02:25 AM CDT RP [id number] Due to temporary technical issues with the PACS/Fluency reporting system, reports are being signed by the in house radiologists without review as a courtesy to insure prompt reporting. The interpreting radiologist is fully responsible for the content of the report.
--- NOTE | 2024-06-03 12:34 | EKG ---
Test Date: 2024-06-03 Test Time: 05:00:50 It Help Desk Associate: GUILLERMO MEASUREMENT RESULTS: Intervals: Rate: 61 ID: [id number] QRSD: 96 QT: 404 QTc: 406 [place]: P: 48 ID: [id number] QRS: 40 T: 16 INTERPRETIVE STATEMENTS: Normal sinus rhythm Nonspecific T wave abnormality Abnormal ECG No previous ECG available for comparison Electronically Signed On 06-03-24 12:33:30 CDT by Cristiano Nicholas
== END 2024-06-03 06:27 | disposition short-term general hospital (02) ==
LOC: ER 01:28
DX: K85.90 Acute pancreatitis without necrosis or infection, unspecified (principal); K80.80 Other cholelithiasis without obstruction; F17.210 Nicotine dependence, cigarettes, uncomplicated
CPT/HCPCS: 96365; 93005; 87040 ×2; 85025; 81001; 36415; 81025; 85610; 83605; 85730; 83690; 80053; 74177; 76705; 96375; 99285; Q9967; J2543; J2405; J7030 ×2